=== PATIENT | male | born 1980 | race Asian ===

== ENCOUNTER 2020-03-10 08:29 | Inpatient (IN) | payer BC, MEDICAID ==
[~2020-03-10] VITALS: Ht 167.6 cm; Wt 71.3 kg
[2020-03-10] MEDS ORDERED: PROMETHAZINE HCL 25 MG TABLET PO PRN (09:30)
[2020-03-10] MEDS ORDERED: ACETAMINOPHEN 325 MG TABLET PO PRN (09:30)
[2020-03-10] MEDS ORDERED: HydrOXYzine PAMOATE 50 MG CAPSULE PO PRN (09:30)
[2020-03-10] MEDS ORDERED: GuaiFENesin/D-METHORPHAN [SUGAR-FREE] 200-20MG/10 ML SYRUP UDCUP PO PRN (09:30)
[2020-03-10] MEDS ORDERED: LOPERAMIDE HCL 2 MG CAPSULE PO PRN (09:30)
[2020-03-10] MEDS ORDERED: ZOLPIDEM TARTRATE 10 MG TABLET PO PRN (09:30)
[2020-03-10] MEDS ORDERED: QUEtiapine FUMARATE 100 MG TABLET PO PRN (09:30)
[2020-03-10] MEDS ORDERED: LORazepam 2 MG TABLET PO PRN (09:30)
[2020-03-10] MEDS ORDERED: TUBERCULIN, PURIFIED PROTEIN DERIVATIVE 5 TU/0.1 ML SYRINGE ID ONE (09:30)
[2020-03-10] MEDS ORDERED: MAGNESIUM HYDROXIDE SUSPENSION 30 ML UDCUP PO PRN (09:30)
[2020-03-10] MEDS ORDERED: MAG HYDROX/AL HYDROX/SIMETH ES 30 ML SUSPENSION UDCUP PO PRN (09:30)
[2020-03-10 09:47] VITALS: BP 136/115
[2020-03-10] MEDS ORDERED: MIRT-89 PO (11:14)
[2020-03-10 16:40] VITALS: BP 138/75
[2020-03-10] MEDS ORDERED: PNEUMOCOCCAL VACCINE POLYVALENT 0.5 ML VIAL [PPSV23] IM ONE (22:00)
[2020-03-10] MEDS: MIRTAZAPINE 15 MG TABLET PO SCH (23:13)
[2020-03-10] MEDS: THIAMINE 100 MG TABLET PO SCH (23:13)
[2020-03-11 00:17] VITALS: BP 112/62
[2020-03-11 08:01] VITALS: BP 112/60
[2020-03-11] MEDS: MULTIVITAMINS WITH MINERALS, THERAPEUTIC TABLET PO SCH (08:04)
[2020-03-11] MEDS: NALTREXONE HCL 50 MG TABLET PO SCH (08:04)
[2020-03-11] MEDS: FOLIC ACID 1 MG TABLET PO SCH (08:05)
[2020-03-11] MEDS: THIAMINE 100 MG TABLET PO SCH ×2 (08:05→16:27)
[2020-03-11 08:20] LABS: EOSINOPHILS % (AUTO) 4.1 % (1.0-6.0); HEMOGLOBIN 15.4 g/dL (13.5-17.5); LYMPHOCYTES # (AUTO) 2.3 K/uL (1.0-4.8); LYMPHOCYTES % (AUTO) 30.5 % (22.0-44.0); MEAN CORPUSCULAR HEMOGLOBIN 31.6 pg (26.0-34.0); MEAN CORPUSCULAR HGB CONC 33.4 G/dL (31.0-37.0); MEAN CORPUSCULAR VOLUME 94 fL (80-100); MONOCYTES # (AUTO) 0.8 K/uL (0.1-1.0); MONOCYTES % (AUTO) 10.8 % (2.0-9.0); NEUTROPHILS % (AUTO) 53.6 % (40.0-70.0); PLATELET COUNT (AUTO) 311 K/uL (150-450); RED BLOOD CELL COUNT(AUTO) 4.88 MIL/uL (4.50-5.90); RED CELL DISTRIBUTION WIDTH 14.5 % (11.5-14.5)
[2020-03-11 08:22] LABS: HEMOGLOBIN A1C 5.8 % (3.8-5.6)
[2020-03-11 08:39] LABS: ALANINE AMINOTRANSFERASE 39 U/L (12-78); ALBUMIN 3.9 g/dL (3.4-5.0); ALKALINE PHOSPHATASE 57 U/L (46-116); ANION GAP 6 mmol/L (8-16); ASPARTATE AMINOTRANSFERASE 16 U/L (15-37); BILIRUBIN,TOTAL 0.6 mg/dL (0.1-1.0); CALCIUM, TOTAL 9.4 mg/dL (8.8-10.5); CARBON DIOXIDE 31 mmol/L (22-29); CHLORIDE 105 mmol/L (98-107); CHOL/HDL RATIO 6.3 (4.2-7.3); CHOLESTEROL 252 mg/dL (131-200); CREATININE 1.05 mg/dL (0.60-1.30); FREE T4 (FREE THYROXINE) 1.03 ng/dL (0.76-1.46); GLOMERULAR FILTR. RATE CALC > 60 mL/min (>60); GLUCOSE,RANDOM 102 mg/dL (70-110); HDL CHOLESTEROL 40 mg/dL (40-60); LDL CHOL (CALC.) 188 mg/dL (0-130); POTASSIUM 4.5 mmol/L (3.5-5.1); SODIUM SERUM 142 mmol/L (136-145); THYROID STIMULATING HORMONE 0.99 uIU/mL (0.36-3.74); TOTAL PROTEIN, SERUM 8.2 g/dL (6.4-8.2); TRIGLYCERIDES 118 mg/dL (15-150); UREA NITROGEN, BLOOD 19 mg/dL (7-18)
[2020-03-11 16:00] VITALS: BP 135/71
[2020-03-11] MEDS: MIRTAZAPINE 15 MG TABLET PO SCH (20:31)
[2020-03-11] MEDS ORDERED: OLANZapine 5 MG RAPDIS TABLET PO SCH (21:00)
[2020-03-12 06:23] VITALS: BP 116/64
[2020-03-12] MEDS: FOLIC ACID 1 MG TABLET PO SCH (08:23)
[2020-03-12] MEDS: MULTIVITAMINS WITH MINERALS, THERAPEUTIC TABLET PO SCH (08:23)
[2020-03-12] MEDS: THIAMINE 100 MG TABLET PO SCH ×2 (08:23→16:34)
[2020-03-12] MEDS: NALTREXONE HCL 50 MG TABLET PO SCH (08:23)
[2020-03-12 08:25] VITALS: BP 102/56
[2020-03-12 16:32] VITALS: BP 118/60
[2020-03-12] MEDS: MIRTAZAPINE 15 MG TABLET PO SCH (20:33)
[2020-03-12] MEDS: OLANZapine 10 MG RAPDIS TABLET PO SCH (20:33)
[2020-03-13 06:19] VITALS: BP 102/51
[2020-03-13 09:22] VITALS: BP 123/62
[2020-03-13] MEDS: FOLIC ACID 1 MG TABLET PO SCH (09:22)
[2020-03-13] MEDS: NALTREXONE HCL 50 MG TABLET PO SCH (09:22)
[2020-03-13] MEDS: MULTIVITAMINS WITH MINERALS, THERAPEUTIC TABLET PO SCH (09:22)
[2020-03-13] MEDS: THIAMINE 100 MG TABLET PO SCH ×2 (09:23→17:31)
[2020-03-13] MEDS ORDERED: MIRT-89 PO (13:33)
[2020-03-13] MEDS ORDERED: NALT50TA PO (13:33)
[2020-03-13] MEDS ORDERED: OLAN10TA22 PO (13:33)
[2020-03-13 16:01] VITALS: BP 109/64
[2020-03-13] MEDS: OLANZapine 10 MG RAPDIS TABLET PO SCH (19:58)
[2020-03-13] MEDS: MIRTAZAPINE 15 MG TABLET PO SCH (19:58)
[2020-03-14 06:11] VITALS: BP 104/62
[2020-03-14] MEDS: FOLIC ACID 1 MG TABLET PO SCH (08:27)
[2020-03-14] MEDS: THIAMINE 100 MG TABLET PO SCH (08:27)
[2020-03-14] MEDS: MULTIVITAMINS WITH MINERALS, THERAPEUTIC TABLET PO SCH (08:28)
[2020-03-14] MEDS: NALTREXONE HCL 50 MG TABLET PO SCH (08:28)
== END 2020-03-14 13:01 | disposition home or self-care (01) | DRG 750 ==
LOC: B3A 19:01
PROVIDERS: ADMIT Psychiatry & Neurology Psychiatry; ATTEND Psychiatry & Neurology Psychiatry
DX: F25.9 Schizoaffective disorder, unspecified (principal); R45.851 Suicidal ideations; Z59.0 Homelessness; Z91.19 Patient's noncompliance with other medical treatment and regimen; F15.10 Other stimulant abuse, uncomplicated; F17.210 Nicotine dependence, cigarettes, uncomplicated; E78.5 Hyperlipidemia, unspecified; Z28.21 Immunization not carried out because of patient refusal
CPT/HCPCS: 83036; 84439; 84443; 86592

== ENCOUNTER 2020-03-10 10:59 | Emergency (ER) | payer SELFPAY ==
[~2020-03-10] VITALS: Ht 166.4 cm; Wt 63.6 kg
[2020-03-10] MEDS ORDERED: MIRT-89 PO (11:14)
[2020-03-10 11:49] LABS: BASOPHILS % (AUTO) 0.4 % (0.0-2.0); EOSINOPHILS % (AUTO) 1.4 % (1.0-6.0); HEMATOCRIT 46.9 % (41-53); HEMOGLOBIN 15.7 g/dL (13.5-17.5); LYMPHOCYTES # (AUTO) 1.4 K/uL (1.0-4.8); LYMPHOCYTES % (AUTO) 13.8 % (22.0-44.0); MEAN CORPUSCULAR HEMOGLOBIN 31.3 pg (26.0-34.0); MEAN CORPUSCULAR HGB CONC 33.5 G/dL (31.0-37.0); MEAN CORPUSCULAR VOLUME 93 fL (80-100); MONOCYTES % (AUTO) 9.3 % (2.0-9.0); NEUTROPHILS # (AUTO) 7.8 K/uL (1.8-7.7); NEUTROPHILS % (AUTO) 75.1 % (40.0-70.0); PLATELET COUNT (AUTO) 303 K/uL (150-450); RED BLOOD CELL COUNT(AUTO) 5.02 MIL/uL (4.50-5.90); RED CELL DISTRIBUTION WIDTH 14.2 % (11.5-14.5)
[2020-03-10 11:55] LABS: AMPHET/METH SCREEN,URINE POSITIVE (NEGATIVE); BARBITURATE SCREEN, URINE NEGATIVE (NEGATIVE); BENZODIAZEPINES SCREEN,URINE NEGATIVE (NEGATIVE); CANNABINOID SCREEN,URINE NEGATIVE (NEGATIVE); COCAINE SCREEN,URINE NEGATIVE (NEGATIVE); METHADONE SCREEN, URINE NEGATIVE (NEGATIVE); OPIATE SCREEN,URINE NEGATIVE (NEGATIVE); PHENCYCLIDINE SCREEN,URINE NEGATIVE (NEGATIVE)
[2020-03-10 12:00] LABS: ANION GAP 10 mmol/L (8-16); CALCIUM, TOTAL 8.6 mg/dL (8.8-10.5); CARBON DIOXIDE 29 mmol/L (22-29); CHLORIDE 101 mmol/L (98-107); CREATININE 1.04 mg/dL (0.60-1.30); GLOMERULAR FILTR. RATE CALC > 60 mL/min (>60); GLUCOSE,RANDOM 89 mg/dL (70-110); POTASSIUM 3.6 mmol/L (3.5-5.1); SODIUM SERUM 140 mmol/L (136-145); UREA NITROGEN, BLOOD 13 mg/dL (7-18)
[2020-03-10 12:06] LABS: ALANINE AMINOTRANSFERASE 38 U/L (12-78); ALBUMIN 4.3 g/dL (3.4-5.0); ALKALINE PHOSPHATASE 64 U/L (46-116); ASPARTATE AMINOTRANSFERASE 20 U/L (15-37); BILIRUBIN,TOTAL 0.5 mg/dL (0.1-1.0); TOTAL PROTEIN, SERUM 8.8 g/dL (6.4-8.2)
[2020-03-10 13:12] VITALS: BP 123/89
== END 2020-03-10 15:49 | disposition other institution (70) ==
LOC: EMS 11:04
DX: R45.851 Suicidal ideations (principal); F15.90 Other stimulant use, unspecified, uncomplicated; F17.210 Nicotine dependence, cigarettes, uncomplicated; F32.9 Major depressive disorder, single episode, unspecified; Z79.899 Other long term (current) drug therapy
CPT/HCPCS: 36415; 80053; 80307; 85025; 99285; G0480

== ENCOUNTER 2020-09-21 22:22 | Inpatient (IN) | payer MEDICAID ==
[~2020-09-21] VITALS: Ht 167.6 cm; Wt 69.4 kg
[~2020-09-21 22:22] MED LIST: MIRT-89 PO; NALT50TA PO; OLAN10TA22 PO
[2020-09-22] MEDS ORDERED: ZOLPIDEM TARTRATE 10 MG TABLET PO PRN (01:00)
[2020-09-22] MEDS ORDERED: HALOPERIDOL 5 MG TABLET PO PRN (01:00)
[2020-09-22] MEDS ORDERED: LORazepam 2 MG TABLET PO PRN (01:00)
[2020-09-22 01:24] LABS: COVID AG,FIA SOURCE NASOPHARYNGEAL
[2020-09-22 01:25] LABS: ANION GAP 9 mmol/L (8-16); CALCIUM, TOTAL 9.5 mg/dL (8.8-10.5); CARBON DIOXIDE 28 mmol/L (22-29); CHLORIDE 98 mmol/L (98-107); GLOMERULAR FILTR. RATE CALC > 60 mL/min (>60); GLUCOSE,RANDOM 132 mg/dL (70-110); SODIUM SERUM 135 mmol/L (136-145); UREA NITROGEN, BLOOD 11 mg/dL (7-18)
[2020-09-22 01:28] LABS: BASOPHILS % (AUTO) 0.3 % (0.0-2.0); EOSINOPHILS % (AUTO) 0.4 % (1.0-6.0); HEMATOCRIT 47.5 % (41-53); HEMOGLOBIN 16.3 g/dL (13.5-17.5); LYMPHOCYTES # (AUTO) 1.5 K/uL (1.0-4.8); LYMPHOCYTES % (AUTO) 13.8 % (22.0-44.0); MEAN CORPUSCULAR HEMOGLOBIN 32.4 pg (26.0-34.0); MEAN CORPUSCULAR HGB CONC 34.4 G/dL (31.0-37.0); MEAN CORPUSCULAR VOLUME 94 fL (80-100); MONOCYTES # (AUTO) 0.9 K/uL (0.1-1.0); MONOCYTES % (AUTO) 8.7 % (2.0-9.0); NEUTROPHILS # (AUTO) 8.3 K/uL (1.8-7.7); NEUTROPHILS % (AUTO) 76.8 % (40.0-70.0); PLATELET COUNT (AUTO) 327 K/uL (150-450); RED BLOOD CELL COUNT(AUTO) 5.05 MIL/uL (4.50-5.90); RED CELL DISTRIBUTION WIDTH 14.5 % (11.5-14.5)
[2020-09-22 01:30] LABS: AMPHET/METH SCREEN,URINE POSITIVE (NEGATIVE); BARBITURATE SCREEN, URINE NEGATIVE (NEGATIVE); BENZODIAZEPINES SCREEN,URINE NEGATIVE (NEGATIVE); CANNABINOID SCREEN,URINE POSITIVE (NEGATIVE); COCAINE SCREEN,URINE POSITIVE (NEGATIVE); METHADONE SCREEN, URINE NEGATIVE (NEGATIVE); OPIATE SCREEN,URINE NEGATIVE (NEGATIVE)
[2020-09-22 01:31] LABS: ALANINE AMINOTRANSFERASE 35 U/L (12-78); ALBUMIN 4.5 g/dL (3.4-5.0); ALKALINE PHOSPHATASE 58 U/L (46-116); ASPARTATE AMINOTRANSFERASE 23 U/L (15-37); BILIRUBIN,TOTAL 0.7 mg/dL (0.1-1.0); TOTAL PROTEIN, SERUM 9.1 g/dL (6.4-8.2)
[2020-09-22 01:40] LABS: PHENCYCLIDINE SCREEN,URINE NEGATIVE (NEGATIVE)
[2020-09-22 05:24] LABS: APPEARANCE,URINE CLOUDY (CLEAR); BILIRUBIN,URINE NEGATIVE (NEGATIVE); GLUCOSE, URINE (UA) NEGATIVE (NEGATIVE); KETONES,URINE TRACE mg/dL (NEGATIVE); LEUKOCYTE ESTERASE ,URINE NEGATIVE (NEGATIVE); NITRATE,URINE NEGATIVE (NEGATIVE); OCCULT BLOOD,URINE TRACE (NEGATIVE); PH,URINE 6.5 (5.0-8.0); PROTEIN,URINE POS 1+ (NEGATIVE); UROBILINOGEN,URINE 0.2 mg/dL (<=1.0)
[2020-09-22 05:42] LABS: BACTERIA,URINE Many /HPF (None Seen); RBC,URINE 0-2 /HPF (0-2); SQUAMOUS EPITHELIAL CELL,UR Few /LPF (None Seen)
[2020-09-22 14:30] VITALS: BP 130/98
[2020-09-22] MEDS ORDERED: ONDANSETRON HCL 4 MG TABLET PO PRN (15:15)
[2020-09-22] MEDS ORDERED: LOPERAMIDE HCL 2 MG CAPSULE PO PRN (15:15)
[2020-09-22] MEDS ORDERED: ACETAMINOPHEN 325 MG TABLET PO PRN (15:15)
[2020-09-22] MEDS ORDERED: GuaiFENesin/D-METHORPHAN [SUGAR-FREE] 200-20MG/10 ML SYRUP UDCUP PO PRN (15:15)
[2020-09-22] MEDS ORDERED: PETROLATUM,WHITE 28 GM JELLY TP PRN (15:15)
[2020-09-22] MEDS ORDERED: ALBUTEROL SULFATE HFA 90 MCG/PUFF 8 GM INHALER IH PRN (15:15)
[2020-09-22] MEDS ORDERED: IBUPROFEN 400 MG TABLET PO PRN (15:15)
[2020-09-22] MEDS ORDERED: CloNIDine HCL 0.1 MG TABLET PO PRN (15:15)
[2020-09-22] MEDS ORDERED: MAGNESIUM HYDROXIDE SUSPENSION 30 ML UDCUP PO PRN (15:15)
[2020-09-22] MEDS ORDERED: MAG HYDROX/AL HYDROX/SIMETH ES 30 ML SUSPENSION UDCUP PO PRN (15:15)
[2020-09-22] MEDS ORDERED: NICOTINE 14 MG/24 HOUR PATCH TD PRN (15:15)
[2020-09-22] MEDS ORDERED: DOCUSATE SODIUM 100 MG CAPSULE PO PRN (15:15)
[2020-09-22 16:00] VITALS: BP 144/95
[2020-09-23 08:09] LABS: CHOL/HDL RATIO 5.1 (4.2-7.3)
[2020-09-23 08:30] VITALS: BP 155/89
[2020-09-23] MEDS ORDERED: GuaiFENesin/D-METHORPHAN [SUGAR-FREE] 200-20MG/10 ML SYRUP UDCUP PO PRN (15:15)
[2020-09-23] MEDS ORDERED: OLANZapine 5 MG RAPDIS TABLET PO PRN (15:15)
[2020-09-23] MEDS ORDERED: TUBERCULIN, PURIFIED PROTEIN DERIVATIVE 5 TU/0.1 ML SYRINGE ID ONE (15:15)
[2020-09-23] MEDS ORDERED: HydrOXYzine PAMOATE 50 MG CAPSULE PO PRN (15:15)
[2020-09-23] MEDS ORDERED: PROMETHAZINE HCL 25 MG TABLET PO PRN (15:15)
[2020-09-23 16:00] VITALS: BP 110/67
[2020-09-23] MEDS: THIAMINE 100 MG TABLET PO SCH (16:49)
[2020-09-23] MEDS: MIRTAZAPINE 15 MG TABLET PO SCH (20:57)
[2020-09-23] MEDS ORDERED: OLANZapine 5 MG RAPDIS TABLET PO SCH (21:00)
[2020-09-24 07:20] LABS: CHOL/HDL RATIO 5.1 (4.2-7.3)
[2020-09-24 07:24] LABS: HEMOGLOBIN A1C 5.6 % (3.8-5.6)
[2020-09-24 08:30] LABS: FREE T4 (FREE THYROXINE) 1.02 ng/dL (0.76-1.46); THYROID STIMULATING HORMONE 1.79 uIU/mL (0.36-3.74)
[2020-09-24] MEDS: MULTIVITAMINS WITH MINERALS, THERAPEUTIC TABLET PO SCH (08:53)
[2020-09-24] MEDS: FOLIC ACID 1 MG TABLET PO SCH (08:53)
[2020-09-24] MEDS: OMEGA-3/DHA/EPA/FISH OIL 1,000 MG CAPSULE PO SCH (08:53)
[2020-09-24] MEDS: NALTREXONE HCL 50 MG TABLET PO SCH (08:53)
[2020-09-24] MEDS: THIAMINE 100 MG TABLET PO SCH ×2 (08:54→16:18)
[2020-09-24 10:17] VITALS: BP 148/66
[2020-09-24 16:00] VITALS: BP 106/57
[2020-09-24] MEDS: MIRTAZAPINE 15 MG TABLET PO SCH (20:40)
[2020-09-24] MEDS: OLANZapine 10 MG RAPDIS TABLET PO SCH (20:41)
[2020-09-25 08:00] VITALS: BP 136/75
[2020-09-25] MEDS: NALTREXONE HCL 50 MG TABLET PO SCH (10:58)
[2020-09-25] MEDS: OMEGA-3/DHA/EPA/FISH OIL 1,000 MG CAPSULE PO SCH (10:58)
[2020-09-25] MEDS: THIAMINE 100 MG TABLET PO SCH ×2 (10:59→16:18)
[2020-09-25] MEDS: MULTIVITAMINS WITH MINERALS, THERAPEUTIC TABLET PO SCH (10:59)
[2020-09-25] MEDS: FOLIC ACID 1 MG TABLET PO SCH (10:59)
[2020-09-25 18:41] VITALS: BP 115/58
[2020-09-25] MEDS: OLANZapine 10 MG RAPDIS TABLET PO SCH (20:17)
[2020-09-25] MEDS: MIRTAZAPINE 15 MG TABLET PO SCH (20:17)
[2020-09-26] MEDS: FOLIC ACID 1 MG TABLET PO SCH (10:26)
[2020-09-26] MEDS: OMEGA-3/DHA/EPA/FISH OIL 1,000 MG CAPSULE PO SCH (10:26)
[2020-09-26] MEDS: NALTREXONE HCL 50 MG TABLET PO SCH (10:26)
[2020-09-26] MEDS: THIAMINE 100 MG TABLET PO SCH ×2 (10:27→17:23)
[2020-09-26] MEDS: MULTIVITAMINS WITH MINERALS, THERAPEUTIC TABLET PO SCH (10:27)
[2020-09-26 10:34] VITALS: BP 115/55
[2020-09-26 16:00] VITALS: BP 112/60
[2020-09-26] MEDS: MIRTAZAPINE 15 MG TABLET PO SCH (21:05)
[2020-09-26] MEDS: OLANZapine 10 MG RAPDIS TABLET PO SCH (21:05)
[2020-09-27] MEDS: FOLIC ACID 1 MG TABLET PO SCH (09:33)
[2020-09-27] MEDS: THIAMINE 100 MG TABLET PO SCH ×2 (09:33→16:34)
[2020-09-27] MEDS: MULTIVITAMINS WITH MINERALS, THERAPEUTIC TABLET PO SCH (09:33)
[2020-09-27] MEDS: NALTREXONE HCL 50 MG TABLET PO SCH (09:33)
[2020-09-27] MEDS: OMEGA-3/DHA/EPA/FISH OIL 1,000 MG CAPSULE PO SCH (09:33)
[2020-09-27 09:40] VITALS: BP 135/79
[2020-09-27 18:06] VITALS: BP 123/76
[2020-09-27] MEDS: OLANZapine 10 MG RAPDIS TABLET PO SCH (20:29)
[2020-09-27] MEDS: MIRTAZAPINE 15 MG TABLET PO SCH (20:29)
[2020-09-28 09:21] VITALS: BP 111/72
[2020-09-28] MEDS: OMEGA-3/DHA/EPA/FISH OIL 1,000 MG CAPSULE PO SCH (10:33)
[2020-09-28] MEDS: MULTIVITAMINS WITH MINERALS, THERAPEUTIC TABLET PO SCH (10:33)
[2020-09-28] MEDS: THIAMINE 100 MG TABLET PO SCH ×2 (10:33→17:05)
[2020-09-28] MEDS: NALTREXONE HCL 50 MG TABLET PO SCH (10:33)
[2020-09-28] MEDS: FOLIC ACID 1 MG TABLET PO SCH (10:34)
[2020-09-28 16:00] VITALS: BP 108/71
[2020-09-28] MEDS: MIRTAZAPINE 15 MG TABLET PO SCH (20:14)
[2020-09-28] MEDS: OLANZapine 10 MG RAPDIS TABLET PO SCH (20:15)
[2020-09-29 08:00] VITALS: BP 127/78
[2020-09-29] MEDS: NALTREXONE HCL 50 MG TABLET PO SCH (09:21)
[2020-09-29] MEDS: OMEGA-3/DHA/EPA/FISH OIL 1,000 MG CAPSULE PO SCH (09:21)
[2020-09-29] MEDS: FOLIC ACID 1 MG TABLET PO SCH (09:21)
[2020-09-29] MEDS: THIAMINE 100 MG TABLET PO SCH ×2 (09:21→16:29)
[2020-09-29] MEDS: MULTIVITAMINS WITH MINERALS, THERAPEUTIC TABLET PO SCH (09:21)
[2020-09-29 16:00] VITALS: BP 118/77
[2020-09-29] MEDS: MIRTAZAPINE 15 MG TABLET PO SCH (20:05)
[2020-09-29] MEDS: OLANZapine 10 MG RAPDIS TABLET PO SCH (20:05)
[2020-09-30 08:00] VITALS: BP 130/83
[2020-09-30] MEDS: FOLIC ACID 1 MG TABLET PO SCH (10:59)
[2020-09-30] MEDS: OMEGA-3/DHA/EPA/FISH OIL 1,000 MG CAPSULE PO SCH (10:59)
[2020-09-30] MEDS: MULTIVITAMINS WITH MINERALS, THERAPEUTIC TABLET PO SCH (10:59)
[2020-09-30] MEDS: NALTREXONE HCL 50 MG TABLET PO SCH (10:59)
[2020-09-30] MEDS: THIAMINE 100 MG TABLET PO SCH ×2 (10:59→16:16)
[2020-09-30 16:34] VITALS: BP 129/79
[2020-09-30] MEDS: OLANZapine 10 MG RAPDIS TABLET PO SCH (20:18)
[2020-09-30] MEDS: MIRTAZAPINE 15 MG TABLET PO SCH (20:18)
[2020-10-01 08:22] VITALS: BP 114/85
[2020-10-01] MEDS: NALTREXONE HCL 50 MG TABLET PO SCH (08:27)
[2020-10-01] MEDS: THIAMINE 100 MG TABLET PO SCH ×2 (08:27→16:18)
[2020-10-01] MEDS: OMEGA-3/DHA/EPA/FISH OIL 1,000 MG CAPSULE PO SCH (08:27)
[2020-10-01] MEDS: MULTIVITAMINS WITH MINERALS, THERAPEUTIC TABLET PO SCH (08:27)
[2020-10-01] MEDS: FOLIC ACID 1 MG TABLET PO SCH (08:28)
[2020-10-01 17:05] VITALS: BP 127/71
[2020-10-01] MEDS: OLANZapine 10 MG RAPDIS TABLET PO SCH (20:37)
[2020-10-01] MEDS: MIRTAZAPINE 15 MG TABLET PO SCH (20:37)
[2020-10-02 08:00] VITALS: BP 128/71
[2020-10-02] MEDS: OMEGA-3/DHA/EPA/FISH OIL 1,000 MG CAPSULE PO SCH (10:26)
[2020-10-02] MEDS: FOLIC ACID 1 MG TABLET PO SCH (10:26)
[2020-10-02] MEDS: THIAMINE 100 MG TABLET PO SCH ×2 (10:26→16:11)
[2020-10-02] MEDS: MULTIVITAMINS WITH MINERALS, THERAPEUTIC TABLET PO SCH (10:26)
[2020-10-02] MEDS: NALTREXONE HCL 50 MG TABLET PO SCH (10:26)
[2020-10-02 16:00] VITALS: BP 120/78
[2020-10-02] MEDS: OLANZapine 10 MG RAPDIS TABLET PO SCH (20:28)
[2020-10-02] MEDS: MIRTAZAPINE 15 MG TABLET PO SCH (20:28)
[2020-10-03 08:00] VITALS: BP 110/75
[2020-10-03] MEDS: THIAMINE 100 MG TABLET PO SCH (10:05)
[2020-10-03] MEDS: OMEGA-3/DHA/EPA/FISH OIL 1,000 MG CAPSULE PO SCH (10:05)
[2020-10-03] MEDS: NALTREXONE HCL 50 MG TABLET PO SCH (10:05)
[2020-10-03] MEDS: MULTIVITAMINS WITH MINERALS, THERAPEUTIC TABLET PO SCH (10:05)
[2020-10-03] MEDS: FOLIC ACID 1 MG TABLET PO SCH (10:05)
[2020-10-03 16:00] VITALS: BP 129/82
[2020-10-03] MEDS ORDERED: OMEG-135 PO (18:51)
[2020-10-03] MEDS ORDERED: OLAN10TA22 PO (18:51)
[2020-10-03] MEDS ORDERED: NALT50TA PO (18:51)
[2020-10-03] MEDS ORDERED: MIRT-89 PO (18:51)
== END 2020-10-03 19:35 | disposition home or self-care (01) | DRG 750 ==
LOC: EMS 22:26 → B2S 09-22 12:34 → 3EI 09-22 14:29
PROVIDERS: ADMIT Psychiatry & Neurology Psychiatry; ATTEND Psychiatry & Neurology Psychiatry
DX: F25.9 Schizoaffective disorder, unspecified (principal); Z59.0 Homelessness; F15.10 Other stimulant abuse, uncomplicated; Z91.19 Patient's noncompliance with other medical treatment and regimen; E78.00 Pure hypercholesterolemia, unspecified; I10 Essential (primary) hypertension; D64.9 Anemia, unspecified; F12.90 Cannabis use, unspecified, uncomplicated; E78.5 Hyperlipidemia, unspecified; F19.10 Other psychoactive substance abuse, uncomplicated; R45.851 Suicidal ideations; E87.1 Hypo-osmolality and hyponatremia; Z20.828 Contact with and (suspected) exposure to other viral communicable diseases
CPT/HCPCS: 83036; 84439; 84443; 86592; 87086; 87426; G0480

== ENCOUNTER 2020-10-05 18:34 | Emergency (ER) | payer MEDICAID ==
[~2020-10-05] VITALS: Ht 167.6 cm; Wt 68.2 kg
[~2020-10-05 18:34] MED LIST changes: +OMEG-135 PO
[2020-10-05] MEDS ORDERED: OLANZapine 5 MG TABLET PO ONE (21:45)
[2020-10-05] MEDS ORDERED: LORazepam 2 MG/ML VIAL IVP ONE (22:00)
[2020-10-05 22:07] LABS: BASOPHILS % (AUTO) 0.2 % (0.0-2.0); EOSINOPHILS % (AUTO) 0.4 % (1.0-6.0); HEMATOCRIT 49.3 % (41-53); HEMOGLOBIN 16.5 g/dL (13.5-17.5); LYMPHOCYTES # (AUTO) 1.4 K/uL (1.0-4.8); LYMPHOCYTES % (AUTO) 11.4 % (22.0-44.0); MEAN CORPUSCULAR HEMOGLOBIN 31.7 pg (26.0-34.0); MEAN CORPUSCULAR HGB CONC 33.5 G/dL (31.0-37.0); MEAN CORPUSCULAR VOLUME 95 fL (80-100); MONOCYTES # (AUTO) 0.9 K/uL (0.1-1.0); MONOCYTES % (AUTO) 7.2 % (2.0-9.0); NEUTROPHILS # (AUTO) 9.7 K/uL (1.8-7.7); NEUTROPHILS % (AUTO) 80.8 % (40.0-70.0); PLATELET COUNT (AUTO) 299 K/uL (150-450); RED BLOOD CELL COUNT(AUTO) 5.21 MIL/uL (4.50-5.90); RED CELL DISTRIBUTION WIDTH 14.8 % (11.5-14.5)
[2020-10-05 22:07] LABS: APPEARANCE,URINE CLOUDY (CLEAR); BILIRUBIN,URINE NEGATIVE (NEGATIVE); GLUCOSE, URINE (UA) NEGATIVE (NEGATIVE); KETONES,URINE NEGATIVE (NEGATIVE); LEUKOCYTE ESTERASE ,URINE SMALL (NEGATIVE); NITRATE,URINE NEGATIVE (NEGATIVE); OCCULT BLOOD,URINE SMALL (NEGATIVE); PH,URINE 6.5 (5.0-8.0); PROTEIN,URINE TRACE (NEGATIVE); UROBILINOGEN,URINE 0.2 mg/dL (<=1.0)
[2020-10-05 22:13] LABS: AMPHET/METH SCREEN,URINE POSITIVE (NEGATIVE); BARBITURATE SCREEN, URINE NEGATIVE (NEGATIVE); BENZODIAZEPINES SCREEN,URINE NEGATIVE (NEGATIVE); CANNABINOID SCREEN,URINE POSITIVE (NEGATIVE); COCAINE SCREEN,URINE NEGATIVE (NEGATIVE); METHADONE SCREEN, URINE NEGATIVE (NEGATIVE); OPIATE SCREEN,URINE NEGATIVE (NEGATIVE); PHENCYCLIDINE SCREEN,URINE NEGATIVE (NEGATIVE)
[2020-10-05 22:14] LABS: CALCIUM, TOTAL 9.1 mg/dL (8.8-10.5); CREATININE 1.34 mg/dL (0.60-1.30); POTASSIUM 5.1 mmol/L (3.5-5.1)
[2020-10-05] MEDS ORDERED: LORazepam 1 MG TABLET PO ONE (22:15)
[2020-10-05 22:16] LABS: BACTERIA,URINE Moderate /HPF (None Seen); SQUAMOUS EPITHELIAL CELL,UR Few /LPF (None Seen)
[2020-10-05 22:40] LABS: ALBUMIN 4.4 g/dL (3.4-5.0); BILIRUBIN,TOTAL 0.5 mg/dL (0.1-1.0); TOTAL PROTEIN, SERUM 9.2 g/dL (6.4-8.2)
[2020-10-06 01:19] VITALS: BP 132/84
== END 2020-10-06 01:39 | disposition home or self-care (01) ==
LOC: EMS 18:35
DX: F41.9 Anxiety disorder, unspecified (principal); F32.9 Major depressive disorder, single episode, unspecified; F15.10 Other stimulant abuse, uncomplicated; F20.9 Schizophrenia, unspecified; F17.210 Nicotine dependence, cigarettes, uncomplicated; F12.90 Cannabis use, unspecified, uncomplicated; F19.90 Other psychoactive substance use, unspecified, uncomplicated
CPT/HCPCS: 87086; 93005

== ENCOUNTER 2020-10-11 08:13 | Inpatient (IN) | payer MEDICAID ==
[~2020-10-11] VITALS: Ht 170.2 cm; Wt 73.0 kg
[~2020-10-11 08:13] MED LIST changes: -MIRT-89 PO; -NALT50TA PO; -OMEG-135 PO
[2020-10-11] MEDS ORDERED: PROZ10 PO (08:40)
[2020-10-11] MEDS ORDERED: CLON-592 PO (08:40)
[2020-10-11 08:53] LABS: BASOPHILS % (AUTO) 0.3 % (0.0-2.0); EOSINOPHILS % (AUTO) 0.7 % (1.0-6.0); HEMATOCRIT 49.8 % (41-53); HEMOGLOBIN 16.7 g/dL (13.5-17.5); LYMPHOCYTES # (AUTO) 1.1 K/uL (1.0-4.8); LYMPHOCYTES % (AUTO) 10.9 % (22.0-44.0); MEAN CORPUSCULAR HEMOGLOBIN 31.7 pg (26.0-34.0); MEAN CORPUSCULAR HGB CONC 33.7 G/dL (31.0-37.0); MEAN CORPUSCULAR VOLUME 94 fL (80-100); MONOCYTES # (AUTO) 0.8 K/uL (0.1-1.0); NEUTROPHILS # (AUTO) 8.2 K/uL (1.8-7.7); NEUTROPHILS % (AUTO) 80.1 % (40.0-70.0); PLATELET COUNT (AUTO) 338 K/uL (150-450); RED BLOOD CELL COUNT(AUTO) 5.29 MIL/uL (4.50-5.90); RED CELL DISTRIBUTION WIDTH 14.6 % (11.5-14.5)
[2020-10-11] MEDS ORDERED: FLUoxetine HCL 10 MG CAPSULE PO ONE (09:00)
[2020-10-11] MEDS ORDERED: ClonazePAM 1 MG TABLET PO ONE (09:00)
[2020-10-11] MEDS ORDERED: OLANZapine 5 MG TABLET PO ONE (09:00)
[2020-10-11 09:01] LABS: COVID AG,FIA SOURCE NASOPHARYNGEAL
[2020-10-11 09:01] LABS: ANION GAP 10 mmol/L (8-16); CALCIUM, TOTAL 9.2 mg/dL (8.8-10.5); CARBON DIOXIDE 28 mmol/L (22-29); CHLORIDE 99 mmol/L (98-107); CREATININE 1.07 mg/dL (0.60-1.30); GLOMERULAR FILTR. RATE CALC > 60 mL/min (>60); GLUCOSE,RANDOM 117 mg/dL (70-110); POTASSIUM 4.2 mmol/L (3.5-5.1); SODIUM SERUM 137 mmol/L (136-145); UREA NITROGEN, BLOOD 15 mg/dL (7-18)
[2020-10-11 09:07] LABS: ALANINE AMINOTRANSFERASE 101 U/L (12-78); ALBUMIN 4.4 g/dL (3.4-5.0); ALKALINE PHOSPHATASE 65 U/L (46-116); ASPARTATE AMINOTRANSFERASE 44 U/L (15-37); BILIRUBIN,TOTAL 0.9 mg/dL (0.1-1.0); TOTAL PROTEIN, SERUM 9.2 g/dL (6.4-8.2)
[2020-10-11 09:08] LABS: ACETAMINOPHEN < 2 mcg/mL (10-30)
[2020-10-11] MEDS ORDERED: LORazepam 1 MG TABLET PO ONE (09:15)
[2020-10-11 09:17] LABS: SALICYLATE < 2.8 mg/dL (2.8-20.0)
[2020-10-11] MEDS ORDERED: HALOPERIDOL 5 MG TABLET PO PRN (09:30)
[2020-10-11] MEDS ORDERED: LORazepam 2 MG TABLET PO PRN (09:30)
[2020-10-11] MEDS ORDERED: ZOLPIDEM TARTRATE 10 MG TABLET PO PRN (09:30)
[2020-10-11 13:06] VITALS: BP 123/75
[2020-10-11 17:39] VITALS: BP 110/60
[2020-10-11] MEDS: OLANZapine 10 MG RAPDIS TABLET PO SCH (20:18)
[2020-10-12 06:36] VITALS: BP 112/63
[2020-10-12] MEDS ORDERED: NICOTINE 14 MG/24 HOUR PATCH TD PRN (08:00)
[2020-10-12] MEDS ORDERED: DOCUSATE SODIUM 100 MG CAPSULE PO PRN (08:00)
[2020-10-12] MEDS ORDERED: ONDANSETRON HCL 4 MG TABLET PO PRN (08:00)
[2020-10-12] MEDS ORDERED: MAGNESIUM HYDROXIDE SUSPENSION 30 ML UDCUP PO PRN (08:00)
[2020-10-12] MEDS ORDERED: CloNIDine HCL 0.1 MG TABLET PO PRN (08:00)
[2020-10-12] MEDS ORDERED: MAG HYDROX/AL HYDROX/SIMETH ES 30 ML SUSPENSION UDCUP PO PRN (08:00)
[2020-10-12] MEDS ORDERED: IBUPROFEN 400 MG TABLET PO PRN (08:00)
[2020-10-12] MEDS ORDERED: GuaiFENesin/D-METHORPHAN [SUGAR-FREE] 200-20MG/10 ML SYRUP UDCUP PO PRN (08:00)
[2020-10-12] MEDS ORDERED: ACETAMINOPHEN 325 MG TABLET PO PRN (08:00)
[2020-10-12] MEDS ORDERED: PETROLATUM,WHITE 28 GM JELLY TP PRN (08:00)
[2020-10-12] MEDS ORDERED: ALBUTEROL SULFATE HFA 90 MCG/PUFF 8 GM INHALER IH PRN (08:00)
[2020-10-12] MEDS ORDERED: LOPERAMIDE HCL 2 MG CAPSULE PO PRN (08:00)
[2020-10-12 08:31] VITALS: BP 104/62
[2020-10-12 16:13] VITALS: BP 105/60
[2020-10-12] MEDS: OLANZapine 10 MG RAPDIS TABLET PO SCH (20:24)
[2020-10-13 05:38] VITALS: BP 141/77
[2020-10-13 08:35] VITALS: BP 119/66
[2020-10-13 16:31] VITALS: BP 111/60
[2020-10-13] MEDS ORDERED: LOPERAMIDE HCL 2 MG CAPSULE PO PRN (20:15)
[2020-10-13] MEDS ORDERED: MAG HYDROX/AL HYDROX/SIMETH ES 30 ML SUSPENSION UDCUP PO PRN (20:15)
[2020-10-13] MEDS ORDERED: MAGNESIUM HYDROXIDE SUSPENSION 30 ML UDCUP PO PRN (20:15)
[2020-10-13] MEDS ORDERED: GuaiFENesin/D-METHORPHAN [SUGAR-FREE] 200-20MG/10 ML SYRUP UDCUP PO PRN (20:15)
[2020-10-13] MEDS ORDERED: HydrOXYzine PAMOATE 50 MG CAPSULE PO PRN (20:15)
[2020-10-13] MEDS ORDERED: PROMETHAZINE HCL 25 MG TABLET PO PRN (20:15)
[2020-10-13] MEDS ORDERED: ACETAMINOPHEN 325 MG TABLET PO PRN (20:15)
[2020-10-13] MEDS ORDERED: OLAN5TAB2 PO (20:20)
[2020-10-13] MEDS ORDERED: FLUO-191 PO (20:20)
[2020-10-13] MEDS ORDERED: MIRTAZAPINE 15 MG TABLET PO SCH (21:00)
[2020-10-13] MEDS ORDERED: OLANZapine 5 MG RAPDIS TABLET PO SCH (21:00)
[2020-10-13] MEDS ORDERED: MIRTAZAPINE 30 MG TABLET PO SCH (21:00)
[2020-10-14 06:13] VITALS: BP 100/63
[2020-10-14 08:28] VITALS: BP 106/62
[2020-10-14] MEDS ORDERED: NALT50TA PO (08:52)
[2020-10-14] MEDS ORDERED: THIAMINE 100 MG TABLET PO SCH (09:00)
[2020-10-14] MEDS ORDERED: OMEGA-3/DHA/EPA/FISH OIL 1,000 MG CAPSULE PO SCH (09:00)
[2020-10-14] MEDS ORDERED: FOLIC ACID 1 MG TABLET PO SCH (09:00)
[2020-10-14] MEDS ORDERED: NALTREXONE HCL 50 MG TABLET PO SCH (09:00)
[2020-10-14] MEDS ORDERED: MULTIVITAMINS WITH MINERALS, THERAPEUTIC TABLET PO SCH (09:00)
== END 2020-10-14 13:05 | disposition home or self-care (01) | DRG 751 ==
LOC: EMS 08:39 → B2S 11:52
PROVIDERS: ADMIT Psychiatry & Neurology Psychiatry; ATTEND Psychiatry & Neurology Psychiatry
DX: F33.3 Major depressive disorder, recurrent, severe with psychotic symptoms (principal); I10 Essential (primary) hypertension; R45.851 Suicidal ideations; F17.210 Nicotine dependence, cigarettes, uncomplicated; R74.01 Elevation of levels of liver transaminase levels; E78.5 Hyperlipidemia, unspecified; Z20.828 Contact with and (suspected) exposure to other viral communicable diseases; Z91.14 Patient's other noncompliance with medication regimen; Z91.19 Patient's noncompliance with other medical treatment and regimen; Z79.899 Other long term (current) drug therapy
CPT/HCPCS: 87081; 87426; G0480; G0481

== ENCOUNTER 2021-09-28 01:22 | Emergency (ER) | payer MEDICAID ==
[~2021-09-28] VITALS: Ht 167.6 cm; Wt 75.0 kg
[~2021-09-28 01:22] MED LIST changes: +NALT50TA PO; -OLAN10TA22 PO
[2021-09-28 01:54] VITALS: BP 141/88
[2021-09-28] MEDS ORDERED: LORazepam 2 MG TABLET PO ONE (02:15)
[2021-09-28 02:27] LABS: COVID AG,FIA SOURCE NASOPHARYNGEAL
[2021-09-28 02:29] LABS: BASOPHILS % (AUTO) 0.4 % (0.0-2.0); EOSINOPHILS % (AUTO) 1.3 % (1.0-6.0); HEMATOCRIT 50.8 % (41-53); HEMOGLOBIN 17.5 g/dL (13.5-17.5); LYMPHOCYTES # (AUTO) 1.7 K/uL (1.0-4.8); LYMPHOCYTES % (AUTO) 20.7 % (22.0-44.0); MEAN CORPUSCULAR HEMOGLOBIN 32.2 pg (26.0-34.0); MEAN CORPUSCULAR HGB CONC 34.4 G/dL (31.0-37.0); MEAN CORPUSCULAR VOLUME 94 fL (80-100); MONOCYTES # (AUTO) 0.7 K/uL (0.1-1.0); NEUTROPHILS # (AUTO) 5.6 K/uL (1.8-7.7); NEUTROPHILS % (AUTO) 68.6 % (40.0-70.0); PLATELET COUNT (AUTO) 327 K/uL (150-450); RED BLOOD CELL COUNT(AUTO) 5.43 MIL/uL (4.50-5.90)
[2021-09-28 02:37] LABS: AMPHET/METH SCREEN,URINE POSITIVE (NEGATIVE); BARBITURATE SCREEN, URINE NEGATIVE (NEGATIVE); BENZODIAZEPINES SCREEN,URINE NEGATIVE (NEGATIVE); CANNABINOID SCREEN,URINE NEGATIVE (NEGATIVE); COCAINE SCREEN,URINE NEGATIVE (NEGATIVE); METHADONE SCREEN, URINE NEGATIVE (NEGATIVE); OPIATE SCREEN,URINE NEGATIVE (NEGATIVE); PHENCYCLIDINE SCREEN,URINE NEGATIVE (NEGATIVE)
[2021-09-28 02:38] LABS: ANION GAP 4 mmol/L (8-16); CALCIUM, TOTAL 9.7 mg/dL (8.8-10.5); CARBON DIOXIDE 34 mmol/L (22-29); CHLORIDE 104 mmol/L (98-107); CREATININE 1.29 mg/dL (0.60-1.30); GLOMERULAR FILTR. RATE CALC > 60 mL/min (>60); GLUCOSE,RANDOM 119 mg/dL (70-110); POTASSIUM 4.7 mmol/L (3.5-5.1); SODIUM SERUM 142 mmol/L (136-145); UREA NITROGEN, BLOOD 13 mg/dL (7-18)
[2021-09-28 02:45] LABS: ALANINE AMINOTRANSFERASE 29 U/L (12-78); ALBUMIN 4.6 g/dL (3.4-5.0); ALKALINE PHOSPHATASE 59 U/L (46-116); ASPARTATE AMINOTRANSFERASE 16 U/L (15-37); BILIRUBIN,TOTAL 0.6 mg/dL (0.1-1.0); TOTAL PROTEIN, SERUM 9.2 g/dL (6.4-8.2)
[2021-09-28] MEDS ORDERED: OLAN10TA74 PO (06:26)
[2021-09-28] MEDS ORDERED: FLUO20CA36 PO (06:28)
== END 2021-09-28 03:37 | disposition home or self-care (01) ==
LOC: EMS 01:23
DX: F22 Delusional disorders (principal); F15.10 Other stimulant abuse, uncomplicated; F17.210 Nicotine dependence, cigarettes, uncomplicated; F12.90 Cannabis use, unspecified, uncomplicated; Z20.822 Contact with and (suspected) exposure to COVID-19
CPT/HCPCS: 36415; 80053; 80307; 85025; 87426; 99283; G0480

== ENCOUNTER 2021-10-05 20:07 | Inpatient (IN) | payer MEDICAID ==
[~2021-10-05] VITALS: Ht 167.6 cm; Wt 68.5 kg
[~2021-10-05 20:07] MED LIST changes: -NALT50TA PO; +OLAN10TA74 PO
[2021-10-05] MEDS ORDERED: FLUO20CA36 PO (20:34)
[2021-10-05 20:47] LABS: BASOPHILS % (AUTO) 0.3 % (0.0-2.0); EOSINOPHILS % (AUTO) 0.3 % (1.0-6.0); HEMATOCRIT 49.7 % (41-53); HEMOGLOBIN 17.3 g/dL (13.5-17.5); LYMPHOCYTES # (AUTO) 1.1 K/uL (1.0-4.8); LYMPHOCYTES % (AUTO) 5.8 % (22.0-44.0); MEAN CORPUSCULAR HEMOGLOBIN 31.6 pg (26.0-34.0); MEAN CORPUSCULAR HGB CONC 34.7 G/dL (31.0-37.0); MEAN CORPUSCULAR VOLUME 91 fL (80-100); MONOCYTES # (AUTO) 1.3 K/uL (0.1-1.0); MONOCYTES % (AUTO) 7.1 % (2.0-9.0); NEUTROPHILS # (AUTO) 16.2 K/uL (1.8-7.7); PLATELET COUNT (AUTO) 326 K/uL (150-450); RED BLOOD CELL COUNT(AUTO) 5.46 MIL/uL (4.50-5.90); RED CELL DISTRIBUTION WIDTH 13.6 % (11.5-14.5)
[2021-10-05 20:50] LABS: NEUTROPHILS % (AUTO) 86.5 % (40.0-70.0)
[2021-10-05 20:57] LABS: ANION GAP 10 mmol/L (8-16); CALCIUM, TOTAL 10.3 mg/dL (8.8-10.5); CARBON DIOXIDE 29 mmol/L (22-29); CHLORIDE 100 mmol/L (98-107); CREATININE 1.86 mg/dL (0.60-1.30); GLOMERULAR FILTR. RATE CALC 40 mL/min (>60); GLUCOSE,RANDOM 115 mg/dL (70-110); POTASSIUM 4.3 mmol/L (3.5-5.1); SODIUM SERUM 139 mmol/L (136-145); UREA NITROGEN, BLOOD 24 mg/dL (7-18)
[2021-10-05 21:03] LABS: ALANINE AMINOTRANSFERASE 37 U/L (12-78); ALBUMIN 4.7 g/dL (3.4-5.0); ALKALINE PHOSPHATASE 65 U/L (46-116); ASPARTATE AMINOTRANSFERASE 31 U/L (15-37); BILIRUBIN,TOTAL 0.6 mg/dL (0.1-1.0); TOTAL PROTEIN, SERUM 9.2 g/dL (6.4-8.2)
[2021-10-05 21:04] LABS: AMPHET/METH SCREEN,URINE POSITIVE (NEGATIVE); BARBITURATE SCREEN, URINE NEGATIVE (NEGATIVE); BENZODIAZEPINES SCREEN,URINE NEGATIVE (NEGATIVE); CANNABINOID SCREEN,URINE NEGATIVE (NEGATIVE); COCAINE SCREEN,URINE NEGATIVE (NEGATIVE); METHADONE SCREEN, URINE NEGATIVE (NEGATIVE); OPIATE SCREEN,URINE NEGATIVE (NEGATIVE); PHENCYCLIDINE SCREEN,URINE NEGATIVE (NEGATIVE)
[2021-10-05] MEDS ORDERED: LORazepam 2 MG TABLET PO ONE (21:45)
[2021-10-05] MEDS ORDERED: LORazepam 2 MG TABLET PO PRN (23:00)
[2021-10-05] MEDS ORDERED: OLANZapine 5 MG RAPDIS TABLET PO PRN (23:00)
[2021-10-05] MEDS ORDERED: ZOLPIDEM TARTRATE 10 MG TABLET PO PRN (23:00)
[2021-10-06 00:01] LABS: COVID AG,FIA SOURCE NASOPHARYNGEAL
[2021-10-06 00:19] LABS: APPEARANCE,URINE CLEAR (CLEAR); BILIRUBIN,URINE NEGATIVE (NEGATIVE); GLUCOSE, URINE (UA) NEGATIVE (NEGATIVE); KETONES,URINE 15 mg/dL (NEGATIVE); LEUKOCYTE ESTERASE ,URINE NEGATIVE (NEGATIVE); NITRATE,URINE NEGATIVE (NEGATIVE); OCCULT BLOOD,URINE SMALL (NEGATIVE); PH,URINE 5.5 (5.0-8.0); PROTEIN,URINE SEE CONFIRM (NEGATIVE); UROBILINOGEN,URINE 0.2 mg/dL (<=1.0)
[2021-10-06 00:35] LABS: CHOL/HDL RATIO 4.7 (4.2-7.3); CHOLESTEROL 229 mg/dL (131-200); HDL CHOLESTEROL 49 mg/dL (40-60); LDL CHOL (CALC.) 160 mg/dL (0-130); TRIGLYCERIDES 102 mg/dL (15-150)
[2021-10-06 00:36] LABS: BACTERIA,URINE Few /HPF (None Seen); CALCIUM OXALATE CRYSTALS,UR Few /LPF (None Seen); MUCUS,URINE Few LPF (None Seen)
[2021-10-06 00:37] LABS: SQUAMOUS EPITHELIAL CELL,UR Rare /LPF (None Seen); SULFOSALICYLIC ACID,URINE 2+ (Negative)
[2021-10-06 13:07] VITALS: BP 101/65
[2021-10-06] MEDS ORDERED: PALIPERIDONE PALMITATE 234 MG/1.5 ML SYRINGE IM ONE (13:30)
[2021-10-06] MEDS ORDERED: GuaiFENesin/D-METHORPHAN [SUGAR-FREE] 200-20MG/10 ML SYRUP UDCUP PO PRN (13:30)
[2021-10-06] MEDS ORDERED: HydrOXYzine PAMOATE 50 MG CAPSULE PO PRN (13:30)
[2021-10-06] MEDS ORDERED: MAG HYDROX/AL HYDROX/SIMETH ES 30 ML SUSPENSION UDCUP PO PRN (13:30)
[2021-10-06] MEDS ORDERED: LOPERAMIDE HCL 2 MG CAPSULE PO PRN (13:30)
[2021-10-06] MEDS ORDERED: PROMETHAZINE HCL 25 MG TABLET PO PRN (13:30)
[2021-10-06] MEDS ORDERED: ACETAMINOPHEN 325 MG TABLET PO PRN (13:30)
[2021-10-06] MEDS ORDERED: MAGNESIUM HYDROXIDE SUSPENSION 30 ML UDCUP PO PRN (13:30)
[2021-10-06] MEDS: THIAMINE 100 MG TABLET PO SCH (16:12)
[2021-10-06] MEDS: CIPROFLOXACIN HCL 500 MG TABLET PO SCH (16:25)
[2021-10-06 17:01] LABS: BASOPHILS % (AUTO) 0.6 % (0.0-2.0); EOSINOPHILS % (AUTO) 2.7 % (1.0-6.0); HEMATOCRIT 47.3 % (41-53); HEMOGLOBIN 16.2 g/dL (13.5-17.5); LYMPHOCYTES # (AUTO) 1.7 K/uL (1.0-4.8); LYMPHOCYTES % (AUTO) 18.9 % (22.0-44.0); MEAN CORPUSCULAR HEMOGLOBIN 31.9 pg (26.0-34.0); MEAN CORPUSCULAR HGB CONC 34.2 G/dL (31.0-37.0); MEAN CORPUSCULAR VOLUME 93 fL (80-100); MONOCYTES # (AUTO) 0.8 K/uL (0.1-1.0); MONOCYTES % (AUTO) 9.3 % (2.0-9.0); NEUTROPHILS # (AUTO) 6.2 K/uL (1.8-7.7); NEUTROPHILS % (AUTO) 68.5 % (40.0-70.0); PLATELET COUNT (AUTO) 288 K/uL (150-450); RED BLOOD CELL COUNT(AUTO) 5.06 MIL/uL (4.50-5.90); RED CELL DISTRIBUTION WIDTH 13.6 % (11.5-14.5)
[2021-10-06 17:24] VITALS: BP 108/68
[2021-10-06] MEDS: MIRTAZAPINE 15 MG TABLET PO SCH (20:02)
[2021-10-06] MEDS: MELATONIN 5 MG TABLET PO SCH (20:02)
[2021-10-06] MEDS ORDERED: OLANZapine 5 MG RAPDIS TABLET PO SCH (21:00)
[2021-10-07] MEDS: CIPROFLOXACIN HCL 500 MG TABLET PO SCH ×2 (08:29→16:23)
[2021-10-07] MEDS: OMEGA-3/DHA/EPA/FISH OIL 1,000 MG CAPSULE PO SCH (08:29)
[2021-10-07] MEDS: MULTIVITAMINS WITH MINERALS, THERAPEUTIC TABLET PO SCH (08:29)
[2021-10-07] MEDS: THIAMINE 100 MG TABLET PO SCH ×2 (08:29→16:23)
[2021-10-07] MEDS: FOLIC ACID 1 MG TABLET PO SCH (08:29)
[2021-10-07] MEDS: NALTREXONE HCL 50 MG TABLET PO SCH (08:29)
[2021-10-07 09:00] VITALS: BP 101/64
[2021-10-07 10:45] LABS: CHOL/HDL RATIO 4.8 (4.2-7.3)
[2021-10-07 11:09] LABS: HEMOGLOBIN A1C 5.6 % (3.8-5.6)
[2021-10-07 16:05] VITALS: BP 127/82
[2021-10-07] MEDS: OLANZapine 10 MG RAPDIS TABLET PO SCH (20:35)
[2021-10-07] MEDS: MIRTAZAPINE 15 MG TABLET PO SCH (20:35)
[2021-10-07] MEDS: MELATONIN 5 MG TABLET PO SCH (20:35)
[2021-10-08] MEDS: THIAMINE 100 MG TABLET PO SCH ×2 (08:11→16:20)
[2021-10-08] MEDS: OMEGA-3/DHA/EPA/FISH OIL 1,000 MG CAPSULE PO SCH (08:11)
[2021-10-08] MEDS: NALTREXONE HCL 50 MG TABLET PO SCH (08:12)
[2021-10-08] MEDS: MULTIVITAMINS WITH MINERALS, THERAPEUTIC TABLET PO SCH (08:12)
[2021-10-08] MEDS: CIPROFLOXACIN HCL 500 MG TABLET PO SCH ×2 (08:12→16:20)
[2021-10-08] MEDS: FOLIC ACID 1 MG TABLET PO SCH (08:12)
[2021-10-08 09:00] VITALS: BP 135/69
[2021-10-08 16:49] VITALS: BP 106/68
[2021-10-08] MEDS: MELATONIN 5 MG TABLET PO SCH (20:14)
[2021-10-08] MEDS: OLANZapine 10 MG RAPDIS TABLET PO SCH (20:14)
[2021-10-08] MEDS: MIRTAZAPINE 30 MG TABLET PO SCH (20:14)
[2021-10-09] MEDS: NALTREXONE HCL 50 MG TABLET PO SCH (08:20)
[2021-10-09] MEDS: MULTIVITAMINS WITH MINERALS, THERAPEUTIC TABLET PO SCH (08:20)
[2021-10-09] MEDS: THIAMINE 100 MG TABLET PO SCH ×2 (08:20→16:29)
[2021-10-09] MEDS: OMEGA-3/DHA/EPA/FISH OIL 1,000 MG CAPSULE PO SCH (08:20)
[2021-10-09] MEDS: CIPROFLOXACIN HCL 500 MG TABLET PO SCH ×2 (08:20→16:28)
[2021-10-09] MEDS: FOLIC ACID 1 MG TABLET PO SCH (08:20)
[2021-10-09 09:39] VITALS: BP 104/69
[2021-10-09 16:34] VITALS: BP 140/83
[2021-10-09] MEDS: MIRTAZAPINE 30 MG TABLET PO SCH (20:17)
[2021-10-09] MEDS: MELATONIN 5 MG TABLET PO SCH (20:17)
[2021-10-09] MEDS: OLANZapine 10 MG RAPDIS TABLET PO SCH (20:17)
[2021-10-10 08:01] VITALS: BP 114/67
[2021-10-10] MEDS ORDERED: PALIPERIDONE PALMITATE 156 MG/ML SYRINGE IM ONE (09:00)
[2021-10-10] MEDS: MULTIVITAMINS WITH MINERALS, THERAPEUTIC TABLET PO SCH (09:07)
[2021-10-10] MEDS: NALTREXONE HCL 50 MG TABLET PO SCH (09:08)
[2021-10-10] MEDS: CIPROFLOXACIN HCL 500 MG TABLET PO SCH ×2 (09:08→16:44)
[2021-10-10] MEDS: FOLIC ACID 1 MG TABLET PO SCH (09:08)
[2021-10-10] MEDS: OMEGA-3/DHA/EPA/FISH OIL 1,000 MG CAPSULE PO SCH (09:08)
[2021-10-10] MEDS: THIAMINE 100 MG TABLET PO SCH ×2 (09:08→16:44)
[2021-10-10 16:10] VITALS: BP 107/54
[2021-10-10] MEDS: MIRTAZAPINE 30 MG TABLET PO SCH (20:15)
[2021-10-10] MEDS: OLANZapine 10 MG RAPDIS TABLET PO SCH (20:15)
[2021-10-10] MEDS: MELATONIN 5 MG TABLET PO SCH (20:16)
[2021-10-11 08:20] VITALS: BP 103/88
[2021-10-11] MEDS: MULTIVITAMINS WITH MINERALS, THERAPEUTIC TABLET PO SCH (09:02)
[2021-10-11] MEDS: THIAMINE 100 MG TABLET PO SCH ×2 (09:03→16:00)
[2021-10-11] MEDS: CIPROFLOXACIN HCL 500 MG TABLET PO SCH (09:03)
[2021-10-11] MEDS: FOLIC ACID 1 MG TABLET PO SCH (09:03)
[2021-10-11] MEDS: NALTREXONE HCL 50 MG TABLET PO SCH (09:03)
[2021-10-11] MEDS: OMEGA-3/DHA/EPA/FISH OIL 1,000 MG CAPSULE PO SCH (09:03)
[2021-10-11 10:20] LABS: COVID AG,FIA SOURCE NASOPHARYNGEAL
[2021-10-11 16:00] VITALS: BP 104/61
[2021-10-11] MEDS: MELATONIN 5 MG TABLET PO SCH (20:00)
[2021-10-11] MEDS: OLANZapine 10 MG RAPDIS TABLET PO SCH (20:00)
[2021-10-11] MEDS: MIRTAZAPINE 30 MG TABLET PO SCH (20:01)
[2021-10-12] MEDS: OMEGA-3/DHA/EPA/FISH OIL 1,000 MG CAPSULE PO SCH (08:50)
[2021-10-12] MEDS: THIAMINE 100 MG TABLET PO SCH ×2 (08:50→16:43)
[2021-10-12] MEDS: FOLIC ACID 1 MG TABLET PO SCH (08:50)
[2021-10-12] MEDS: NALTREXONE HCL 50 MG TABLET PO SCH (08:50)
[2021-10-12] MEDS: MULTIVITAMINS WITH MINERALS, THERAPEUTIC TABLET PO SCH (08:51)
[2021-10-12 09:23] VITALS: BP 101/59
[2021-10-12] MEDS ORDERED: OLAN10TA26 PO (16:37)
[2021-10-12] MEDS ORDERED: MELA5TAB40 PO (16:37)
[2021-10-12] MEDS ORDERED: OMEG-135 PO (16:37)
[2021-10-12] MEDS ORDERED: MIRT30 PO (16:37)
[2021-10-12] MEDS ORDERED: NALT50TA PO (16:37)
== END 2021-10-12 17:45 | disposition home or self-care (01) | DRG 750 ==
LOC: EMS 20:15 → UNDOADMIN 10-06 12:16 → 3EX 10-06 12:16 → EMS 10-06 12:17 → 3EX 10-06 12:17
PROVIDERS: ADMIT Psychiatry & Neurology Psychiatry; ATTEND Psychiatry & Neurology Psychiatry
DX: F25.9 Schizoaffective disorder, unspecified (principal); Z59.00 Homelessness unspecified; D72.829 Elevated white blood cell count, unspecified; F17.210 Nicotine dependence, cigarettes, uncomplicated; J44.9 Chronic obstructive pulmonary disease, unspecified; I10 Essential (primary) hypertension; Z20.822 Contact with and (suspected) exposure to COVID-19; E78.00 Pure hypercholesterolemia, unspecified; F15.10 Other stimulant abuse, uncomplicated; F41.0 Panic disorder [episodic paroxysmal anxiety]; Z55.9 Problems related to education and literacy, unspecified; Z63.9 Problem related to primary support group, unspecified; Z65.3 Problems related to other legal circumstances; Z91.19 Patient's noncompliance with other medical treatment and regimen; Z91.51 Personal history of suicidal behavior
CPT/HCPCS: 80053; 80061; 81001; 81002; 83036; 85025; 99285; G0378; G0480; Q9967